=== PATIENT | male | born 1960 | race Caucasian/White ===

== ENCOUNTER 2021-12-16 04:48 | Emergency (ER) | payer OTHER, SELFPAY ==
--- NOTE | ~2021-12-16 | US_ITS ---
EXAMINATION: US VENOUS ULTRASOUND WITH DOPPLER LOWER EXTREMITY, LEFT CLINICAL INFORMATION: Left thigh pain COMPARISON: None TECHNIQUE: Ultrasound of the deep veins is performed from the hip to the calf with compression sonography and color and pulse Doppler assessment. Spectral analysis with color-flow imaging is performed. FINDINGS: There is normal venous compression and respiratory variation and augmented flow. The visualized common femoral vein, femoral vein, profunda femoral vein, popliteal vein, and the trifurcation region shows no evidence of deep venous thrombosis. There is no significant popliteal fossa cyst. Spectral Doppler evaluation of right common femoral vein demonstrates normal respiratory variation. Scanning in the area of pain in the left posterior thigh revealed no sonographic abnormality. US/US venous duplex LE LT IMPRESSION: No DVT demonstrated in the left lower extremity.
[2021-12-16 05:14] VITALS: BP 127/86; PULSE 90; RESP 16; TEMP 36.7; O2SAT 95; BMI 34.9
[2021-12-16 06:18] LABS: MANUAL DIFF FLAG NO
[2021-12-16 06:20] LABS: Basophils Absolute Auto 0.1 X10*3/uL (0.0-0.2); Basophils Percent Auto 0.7 % (0-2); Eosinophils Absolute Auto 0.2 X10*3/uL (0.0-0.4); Eosinophils Percent Auto 2.2 % (0-4); Hematocrit 40.9 % (42.0-52.0); Hemoglobin 13.7 g/dl (14.0-18.0); Imm Gran Abs Auto 0.03 X10*3/uL (0.00-0.03); Imm Gran Pct Auto 0.4 % (0.0-0.4); Lymphocytes Absolute Auto 1.3 X10*3/uL (1.2-4.9); Mean Corpuscular HGB Conc 33.5 g/dl (31.0-36.0); Mean Corpuscular Hemoglobin 30.4 pg (27.0-33.0); Mean Corpuscular Volume 90.7 fL (80.0-98.0); Mean Platelet Volume 10.1 fL (9.4-12.4); Monocytes Absolute Auto 0.6 X10*3/uL (0.1-1.2); Monocytes Percent Auto 8.1 % (2-11); Neutrophils Absolute Auto 5.3 x10*3/uL (2.0-8.3); Neutrophils Percent Auto 71.6 % (45-73); Platelet Count 235 X10*3/uL (160-400); Red Blood Count 4.51 X10*6/uL (4.60-5.80); Red Cell Distribution Width 12.9 % (11.0-16.0); White Blood Count 7.4 X10*3/uL (4.8-10.8)
[2021-12-16 06:35] LABS: Alanine Aminotransferase 16 U/L (0-40); Albumin Level 4.3 g/dL (3.5-5.0); Alkaline Phosphatase 75 U/L (39-117); Anion Gap 18 (12-20); Aspartate Amino Transferase 16 U/L (5-37); Bilirubin Total 1.2 mg/dL (0.0-1.0); Blood Urea Nitrogen 15 mg/dL (9-16); Calcium 9.2 mg/dL (8.4-10.2); Carbon Dioxide 21 mmol/L (22-29); Chloride 106 mmol/L (96-108); Estimated Glomerular Filt Rate > 60; Glucose Random 109 mg/dL (60-115); Potassium 4.6 mmol/L (3.3-5.1); Sodium 140 mmol/L (135-145); Total Protein 7.6 g/dL (6.5-8.0)
--- NOTE | 2021-12-16 06:54 | ED_ITS ---
HPI - General Adult General Chief complaint: Back Pain/Injury Stated complaint: Leg pain Time Seen by Provider: 12/16/21 06:36 Source: patient History of Present Illness HPI narrative: Patient complaining of left eye pain. Patient states it started 2 days ago and got progressively worse over the past 2 days. No specific injury but states he did a lot of physical activity and lifting over the weekend including gardening and lifting many bags of pallets. He states the pain began the next day and then gradually got worse. No swelling in his legs or pain or tenderness in his calves. No history of thromboembolic disease. No fevers or chills. No back pain. Has some mild pain going into his groin but the majority the pain is in his left medial thigh. No radiation of the pain. No other symptoms. Related Data Previous Rx's Medication Instructions Recorded cyclobenzaprine 10 mg tablet 10 mg PO TID PRN muscle spasm #20 12/16/21 tabs ibuprofen 800 mg tablet 800 mg PO Q8H PRN pain #30 tabs 12/16/21 Allergies Allergy/AdvReac Type Severity Reaction Status Date / Time No Known Allergies Allergy Verified 12/16/21 05:20 Review of Systems Constitutional: Comments: No fevers or chills Cardiovascular: Comments: No chest pain Respiratory: Comments: No respiratory symptoms Gastrointestinal: Comments: No abdominal symptoms Genitourinary: Comments: No dysuria Musculoskeletal: Comments: Leg pain is described Integumentary/Breasts: Comments: No rash or change in skin color Neurologic: Comments: No paresthesias PMFSH Social History Social History Advance Directives: Yes Advance Directives Information Provided: No Advance Directives on File: No Physical Exam ED Vital Signs: Vital Signs - 24 hr 12/16/21 05:14 12/16/21 07:00 Temperature 98.0 F Pulse Rate 90 79 Respiratory Rate 16 16 Blood Pressure 127/86 122/78 Pulse Oximetry 95 95 Oxygen Delivery Method Room Air Room Air BMI result Body Mass Index 34.9 Const Other: Awake alert and in no acute distress lying comfortably on the stretcher GI Other: Soft nontender nondistended Other: No testicular tenderness or scrotal abnormalities. No perineal tenderness or changes to skin. Remainder of exam normal Back/Spine/Pelvis Other: No back discomfort with movement Skin Other: Warm pink and dry without rash or change in color over affected area. Psoriasis affecting hands at baseline per patient Neuro Other: Neurologically intact Extrem Other: Tenderness to left abductor muscles. No calf tenderness or pedal edema. No other swelling Course Course Course Narrative: Patient with likely abductor muscle strain. Patient on biologic medication for psoriasis. Otherwise no significant thromboembolic risk factors. Rhabdomyolysis is a possibility. Will add on CPK 8 current labs which are so far normal. Ultrasound to rule out DVT. 08:05. CPK is normal Ultrasound shows no evidence of DVT Stable for discharge home with final diagnosis of left adductor muscle strain Medications Administered Discontinued Medications Generic Name Dose Route Start Last Admin Trade Name Freq PRN Reason Stop Dose Admin Cyclobenzaprine HCl 10 mg 12/16/21 06:53 12/16/21 07:16 Cyclobenzaprine Hcl 10 Mg Tablet PO 12/16/21 06:54 10 mg ONCE ONE Administration Ketorolac Tromethamine 30 mg 12/16/21 06:53 12/16/21 07:17 Ketorolac Tromethamine 30 Mg/Ml Vial IM 12/16/21 06:54 30 mg ONCE ONE Administration Medical Decision Making Lab Data Result diagrams: 12/16/21 06:04 12/16/21 06:04 Labs: Lab Results 12/16/21 12/16/21 Range/Units 06:04 06:04 WBC 7.4 (4.8-10.8) X10*3/uL RBC 4.51 L (4.60-5.80) X10*6/uL Hgb 13.7 L (14.0-18.0) g/dl Hct 40.9 L (42.0-52.0) % MCV 90.7 (80.0-98.0) fL MCH 30.4 (27.0-33.0) pg MCHC 33.5 (31.0-36.0) g/dl RDW 12.9 (11.0-16.0) % Plt Count 235 (160-400) X10*3/uL MPV 10.1 (9.4-12.4) fL Immature Gran % (Auto) 0.4 (0.0-0.4) % Neut % (Auto) 71.6 (45-73) % Lymph % (Auto) 17.0 L (20-40) % [place] % (Auto) 8.1 (2-11) % Eos % (Auto) 2.2 (0-4) % Baso % (Auto) 0.7 (0-2) % Lymph # (Auto) 1.3 (1.2-4.9) X10*3/uL [place] # (Auto) 0.6 (0.1-1.2) X10*3/uL Eos # (Auto) 0.2 (0.0-0.4) X10*3/uL Baso # (Auto) 0.1 (0.0-0.2) X10*3/uL Abs Immat Gran (auto) 0.03 (0.00-0.03) X10*3/uL Absolute Neuts (auto) 5.3 (2.0-8.3) x10*3/uL Absolute Nucleated RBC 0.000 (0.0-0.012) X10*3/uL Nucleated RBC % (auto) 0.0 (0.0-0.2) /100WBC Sodium 140 (135-145) mmol/L Potassium 4.6 (3.3-5.1) mmol/L Chloride 106 (96-108) mmol/L Carbon Dioxide 21 L (22-29) mmol/L Anion Gap 18 (12-20) BUN 15 (9-16) mg/dL Creatinine 0.70 (0.5-1.4) mg/dL Estim Creat Clear Calc 133.0 Estimated GFR > 60 Random Glucose 109 (60-115) mg/dL Calcium 9.2 (8.4-10.2) mg/dL Total Bilirubin 1.2 H (0.0-1.0) mg/dL AST 16 (5-37) U/L ALT 16 (0-40) U/L Alkaline Phosphatase 75 (39-117) U/L Total Creatine Kinase 52 (38-174) U/L Total Protein 7.6 (6.5-8.0) g/dL Albumin 4.3 (3.5-5.0) g/dL Discharge Plan Discharge Clinical Impression: Strain of adductor muscle of thigh Patient Disposition: Home, Self-Care Instructions: Muscle Strain (ED) Additional Instructions: Call [facility] for follow-up. [phone]. Prescriptions: New ibuprofen 800 mg tablet 800 mg PO Q8H PRN (Reason: pain) Qty: 30 0RF cyclobenzaprine 10 mg tablet 10 mg PO TID PRN (Reason: muscle spasm) Qty: 20 0RF Stand Alone Forms: Work/School Release
[2021-12-16 07:00] VITALS: BP 122/78; PULSE 79; RESP 16; O2SAT 95
[2021-12-16] MEDS: Cyclobenzaprine HCl 10 MG TABLET PO (07:16)
[2021-12-16] MEDS: Ketorolac Tromethamine 30 MG/ML VIAL IM (07:17)
== END 2021-12-16 08:29 | disposition home or self-care (01) ==
PROVIDERS: Emergency Provider Emergency Medicine; PCP Internal Medicine
DX: M54.50 Low back pain, unspecified (principal); M79.605 Pain in left leg; H57.12 Ocular pain, left eye; Z79.899 Other long term (current) drug therapy
CPT/HCPCS: 36415; 80053; 82550; 85025; 93971; 96372; 99284; J1885